=== PATIENT | female | born 1930 | race Caucasian/White ===

== ENCOUNTER 2021-08-11 08:38 | Inpatient (IN) | payer MEDICARE ==
[2021-08-11] MEDS ORDERED: Diltiazem 125 MG/25 ML ONE (09:05)
[2021-08-11 09:42] LABS: #Basophils 0.1 thou/uL (0.0-0.2); #Eosinphils 0.2 thou/uL (0.0-0.7); #Lymphocytes 2.8 thou/uL (1.20-3.40); #Monocytes 1.1 thou/uL (0.11-0.59); #Neutrophils 14.4 thou/uL (1.40-6.50); %Basophils 0.3 % (0.0-1.0); %Eosinophils 0.9 % (0.0-10.0); %Monocytes 5.7 % (0.0-10.0); %Neutrophils 78.1 % (42.0-75.0); Hemoglobin 14.4 g/dL (12.0-16.0); Mean Corpuscular HGB CONC 31.4 g/dL (32.0-36.0); Mean Corpuscular Volume 89.3 fL (78.0-98.0); Mean Platelet Volume 6.5 fL (7.4-10.4); Platelet Count 257 thou/uL (130-400); RBC Distribution Width 15.5 % (11.5-14.5); Red Blood Cell (RBC) Count 5.14 mill/uL (4.20-5.40); White Blood Cell (WBC) Count 18.5 thou/uL (4.8-10.8)
[2021-08-11 10:04] LABS: ALT (SGPT) 10 U/L (8-55); AST (SGOT) 17 U/L (5-34); Albumin 3.5 g/dL (3.4-4.8); Alkaline Phosphatase 78 U/L (40-110); Anion Gap 18 mmol/L (10-20); BUN (Urea Nitrogen) 9 mg/dL (9.8-20.1); Bilirubin, Total 0.5 mg/dL (0.2-1.2); Calc. Creatinine Clearance 0 mL/min (70-130); Calcium 9.4 mg/dL (7.8-10.44); Carbon Dioxide 24 mmol/L (23-31); Chloride 98 mmol/L (98-107); Globulin 3.2 g/dL (2.4-3.5); Glucose 164 mg/dL (83-110); Magnesium 1.8 mg/dL (1.6-2.6); Potassium 4.4 mmol/L (3.5-5.1); Protein, Total 6.7 g/dL (5.8-8.1); Sodium 136 mmol/L (136-145)
[2021-08-11] MEDS ORDERED: Iopamidol-370 76% 500 ML 1 ML ONE (10:19)
[2021-08-11] MEDS ORDERED: Fentanyl 100 MCG/2 ML VIAL ONE (10:41)
[2021-08-11] MEDS ORDERED: Esmolol 2,500 MG/250 ML 250 ML ONE (10:46)
[2021-08-11] MEDS ORDERED: Morphine 4 MG/ML VIAL ONE (11:46)
[2021-08-11] MEDS ORDERED: Ondansetron PF 4 MG/2 ML Vial ONE (11:46)
[2021-08-11] MEDS ORDERED: Lorazepam 2 MG/ML VIAL ONE (12:13)
[2021-08-11] MEDS ORDERED: Digoxin 0.5 MG/2 ML AMP SLOW IVP SCH ×2 (12:15→20:00)
[2021-08-11 15:43] VITALS: BMI 23.1
[2021-08-11] MEDS ORDERED: Lidocaine 5% Patch TD SCH (17:30)
[2021-08-11] MEDS: Morphine 4 MG/ML VIAL SLOW IVP PRN ×2 (17:35→21:31)
[2021-08-11] MEDS ORDERED: Esmolol 2,500 MG/250 ML 250 ML IVPB SCH (17:45)
[2021-08-11] MEDS: Ondansetron PF 4 MG/2 ML Vial IVP PRN (18:19)
[2021-08-11] MEDS: Diltiazem 125 MG in Sodium Chloride 0.9% 100 ML IVPB SCH (20:45)
[2021-08-12] MEDS: Ondansetron PF 4 MG/2 ML Vial IVP PRN ×2 (01:57→08:51)
[2021-08-12] MEDS ORDERED: Transdermal Patch Removal TOP SCH (05:30)
[2021-08-12] MEDS: Morphine 4 MG/ML VIAL SLOW IVP PRN ×2 (06:07→09:59)
[2021-08-12 08:42] LABS: SARS-CoV-2 PCR by NAA Not Detected (NotDetected)
[2021-08-12] MEDS: Diltiazem 125 MG in Sodium Chloride 0.9% 100 ML IVPB SCH (10:00)
[2021-08-12 11:45] VITALS: BP 100/49; TEMP 99
== END 2021-08-12 13:10 | disposition hospice, home (50) | DRG 300 ==
LOC: ERS 08:38 → 2NO 12:31
PROVIDERS: ADMIT Internal Medicine; ATTEND Internal Medicine
DX: I71.01 Dissection of thoracic aorta (principal); I13.0 Hypertensive heart and chronic kidney disease with heart failure and stage 1 through stage 4 chronic kidney disease, or unspecified chronic kidney disease; Z51.5 Encounter for palliative care; Z20.822 Contact with and (suspected) exposure to COVID-19; I48.91 Unspecified atrial fibrillation; I50.9 Heart failure, unspecified; E78.5 Hyperlipidemia, unspecified; N18.9 Chronic kidney disease, unspecified
CPT/HCPCS: 36415; 71045; 71275; 74174; 80053; 83735; 83880; 84484; 85025; 93005; J1160; J2060; J2270; J2405; J3010; J3490; Q9967; U0003; U0005